=== PATIENT | female | born 1990 | race Caucasian/White ===

== ENCOUNTER 2016-10-10 19:42 | Emergency (ER) | payer SELFPAY ==
[2016-10-10 19:53] VITALS: O2SAT 98
[2016-10-10] MEDS ORDERED: Sodium Chloride 0.9% 1,000 ML IV STA (20:13)
[2016-10-10 20:18] VITALS: BMI 37.4
--- NOTE | 2016-10-10 20:19 | ED PDOC ---
Arrival/HPI - General Time Seen by Provider: 10/10/16 19:51 Historian: Patient - History of Present Illness Narrative History of Present Illness (Text): 10/10/16 20:08 A 26 year old obese female, whose past medical history includes NIDDM (on Metformin), presents to the emergency department for chest palpitations, which began 2 days ago and chest pain, which began 1 day ago. The patient admits to being addicted to soda and drank 2 cans today. She also reports two episodes of vomiting, diarrhea all day, and having chills. She also says that she has a history of anxiety and has been feeling very anxious but does not take any medications. She denies any fever, abdominal pain, vision changes, hematuria, dysuria, body aches, or any other complaints at this time. She recently had an ingrown toenail procedure of her left big toe. PMD: [place] Time/Duration: < week (x2 days) Symptom Onset: Gradual Symptom Course: Worsening Activities at Onset: Light Context: Home Past Medical History - Provider Review Nursing Documentation Reviewed: Yes - Infectious Disease Hx of Infectious Diseases: None - Endocrine/Metabolic Hx Diabetes Mellitus Type 2: Yes - Psychiatric Hx Substance Use: No - Anesthesia Hx Anesthesia: No Hx Anesthesia Reactions: No Hx Malignant Hyperthermia: No Family/Social History - Physician Review Nursing Documentation Reviewed: Yes Family/Social History: Unknown Family HX Smoking Status: Unknown If Ever Smoked Hx Alcohol Use: No Hx Substance Use: No Allergies/Home Meds Allergies/Adverse Reactions: Allergies No Known Allergies Allergy (Verified 03/08/16 17:25) Home Medications: Home Meds Medication Instructions Recorded Confirmed MetFORMIN [glucOPHAGE] 1,000 mg PO BID 07/15/15 03/08/16 Review of Systems - Physician Review All systems were reviewed & negative as marked: Yes - Review of Systems Constitutional: absent: Fevers Eyes: absent: Vision Changes Cardiovascular: Chest Pain, Palpitations Gastrointestinal: Diarrhea, Nausea, Vomiting. absent: Abdominal Pain Musculoskeletal: absent: Back Pain, Neck Pain Physical Exam Vital Signs Reviewed: Yes Vital Signs Temp Pulse Resp BP Pulse Ox 10/10/16 21:31 98.4 F 100 H 18 98 10/10/16 19:52 123 H 16 140/86 98 Temperature: Afebrile Pulse: Tachycardic Respiratory Rate: Normal Appearance: Positive for: Well-Appearing, Non-Toxic, Comfortable Pain Distress: None Mental Status: Positive for: Alert and Oriented X 3 - Systems Exam Head: Present: Atraumatic, Normocephalic Pupils: Present: PERRL Conjunctiva: Present: Normal Mouth: Present: Moist Mucous Membranes Pharnyx: Present: Normal. No: ERYTHEMA, EXUDATE Neck: Present: Normal Range of Motion Respiratory/Chest: Present: Clear to Auscultation, Good Air Exchange. No: Respiratory Distress, Accessory Muscle Use Cardiovascular: Present: Normal S1, S2, Tachycardic. No: Murmurs Abdomen: Present: Normal Bowel Sounds. No: Tenderness, Distention, Peritoneal Signs Back: Present: Normal Inspection Upper Extremity: Present: Normal Inspection. No: Cyanosis, Edema Lower Extremity: Present: Normal Inspection. No: Edema Neurological: Present: GCS=15, CN II-XII Intact, Speech Normal Skin: Present: Warm, Dry, Normal Color. No: Rashes Psychiatric: Present: Alert, Oriented x 3, Normal Insight, Normal Concentration Medical Decision Making ED Course and Treatment: 10/10/16 20:20 Impression: A 26 year old obese female with palpitations and chest pain. Differential Diagnosis included but are not limited to: anxiety vs dehydration vs PE vs infection Plan: -- Chest X-rays -- EKG -- Xanax, Pepcid, IV fluids -- Labs -- test -- Urinalysis -- Ultrasound lower extremity -- Reassess and disposition Prior Visits: Notes and results from previous visits were reviewed. The patient was last seen in the emergency department on 03/08/16 for back pain. The patient was discharged routine home. Progress Notes: 10/10/16 21:20 EKG: Ordered, reviewed, and independently interpreted the EKG. Rate : 123 BPM Rhythm : Sinus tachycardia Interpretation : Normal intervals, normal axis, no ST/T changes. Comparison : No changes compared from EKG on 07/15/15. 10/10/16 22:36 Patient with noted history. Initial EKG shows sinus tachycardia. Labs show normal CE and normal d-dimer with unremarkable CXR. Doubt cardiopulmonary etiology. Labs with leukocytosis of 14.3K, which may be related to possible gastroenteritis or possible UTI on u/a. Ingrown toenail site with no evidence of infection. Patient given IVF and famotidine and xanax, and heart rate improved significantly down to the 90s - she will be ok for dc on antibiotics to follow up her pmd. - Lab Interpretations Lab Results: 10/10/16 19:50 10/10/16 19:50 Lab Results 10/10/16 20:00: Urine Color Yellow, Urine Appearance Clear, Urine pH 6.0, Ur Specific [place] 1.015, Urine Protein Trace H, Urine Glucose (UA) Negative, Urine Ketones Trace H, Urine Blood Trace-lysed H, Urine Nitrate Negative, Urine Bilirubin Negative, Urine Urobilinogen 0.2, Ur Leukocyte Esterase Trace H, Urine RBC 0 - 2, Urine WBC 2 - 5, Ur Epithelial Cells 3 - 4, Urine HCG, Qual Negative 10/10/16 19:50: PT 10.5, INR 0.97, APTT 25.9, D-Dimer, Quantitative 0.30 10/10/16 19:50: Sodium 137, Potassium 3.6, Chloride 99, Carbon Dioxide 23, Anion Gap 19, BUN 11, Creatinine 0.6, Est GFR ( Amer) > 60, Est GFR (Non- Af Amer) > 60, Random Glucose 169 H, Calcium 9.3, Magnesium 1.7, Total Bilirubin 0.8, AST 31, ALT 51, Alkaline Phosphatase 91, Lactate Dehydrogenase 511, Total Creatine Kinase 76, Troponin I < 0.01, NT-Pro-B Natriuret Pep 33.2, Total Protein 8.1, Albumin 4.6, Globulin 3.5, Albumin/Globulin Ratio 1.3, Lipase 64 10/10/16 19:50: WBC 14.3 H D, RBC 4.79, Hgb 11.8 L, Hct 36.4, MCV 76.0 L, MCH 24.6 L, MCHC 32.4, RDW 13.7, Plt Count 462 H, MPV 9.3, Gran % 66.1, Lymph % ( Auto) 27.2, [place] % (Auto) 5.6, Eos % (Auto) 0.9 L, Baso % (Auto) 0.2, Gran # 9.47 H, Lymph # 3.9 H, [place] # 0.8 H, Eos # 0.1, Baso # 0.03 I have reviewed the lab results: Yes - RAD Interpretation Radiology Orders: 10/10/16 20:12 CHEST TWO VIEWS (PA/LAT) [RAD] Stat 10/10/16 20:15 DUPLEX LOWER EXTRM VEIN BILAT [US] Stat - Medication Orders Current Medication Orders: Discontinued Medications Alprazolam (Xanax) 0.25 mg PO STAT STA PRN Reason: Protocol Stop: 10/10/16 20:15 Last Admin: 10/10/16 20:27 Dose: 0.25 mg Famotidine (Pepcid) 20 mg IVP STAT STA Stop: 10/10/16 20:14 Last Admin: 10/10/16 20:27 Dose: 20 mg Sodium Chloride (Sodium Chloride 0.9%) 1,000 mls @ 999 mls/hr IV .Q1H1M STA Stop: 10/10/16 21:13 Last Admin: 10/10/16 20:27 Dose: 999 mls/hr Ceftriaxone Sodium (Rocephin 1 Gram Ivpb) 1 gm in 100 mls @ 200 mls/hr IV ONCE STA PRN Reason: Protocol Stop: 10/10/16 22:30 - PA / RN LPN CNA / Resident Statement MD/ has reviewed & agrees with the documentation as recorded. - Scribe Statement The provider has reviewed the documentation as recorded by the Anat Perry Provider Scribe Attestation: All medical record entries made by the Scribe were at my direction and personally dictated by me. I have reviewed the chart and agree that the record accurately reflects my personal performance of the history, physical exam, medical decision making, and the department course for this patient. I have also personally directed, reviewed, and agree with the discharge instructions and disposition. Disposition/Present on Arrival - Present on Arrival Any Indicators Present on Arrival: No History of DVT/PE: No History of Uncontrolled Diabetes: No Urinary Catheter: No History Surgical Site Infection Following: None - Disposition Have Diagnosis and Disposition been Completed?: Yes Diagnosis: Palpitations, Anxiety, Urinary tract infection Disposition: HOME/ ROUTINE Disposition Time: 22:35 Patient Plan: Discharge Condition: GOOD Discharge Instructions (ExitCare): Palpitations (ED), Anxiety (ED) Additional Instructions: Drink plenty of fluids. Take the antibiotics as prescribed. Follow up with your primary care doctor. Return to the emergency department if any new concerning symptoms. Prescriptions: Cephalexin [Keflex] 500 mg PO TID #30 cap Referrals: [facility], [Primary Care Provider] - Follow up with primary
[2016-10-10 20:59] LABS: BASO # 0.03 K/mm3 (0.0-2.0); BASO % 0.2 % (0.0-3.0); EOS # 0.1 (0.0-0.7); EOS % 0.9 % (1.5-5.0); GRAN # 9.47 (1.4-6.5); GRAN % 66.1 % (50.0-68.0); HEMOGLOBIN 11.8 g/dL (12.0-16.0); LYMPH # 3.9 (1.2-3.4); LYMPH % 27.2 % (22.0-35.0); MEAN CORPUSCULAR HEMOGLOBIN 24.6 pg (25.0-35.0); MEAN CORPUSCULAR HGB CONC 32.4 g/dl (31.0-37.0); MEAN PLATELET VOLUME 9.3 fl (7.0-11.0); MONO # 0.8 (0.1-0.6); MONO % 5.6 % (1.0-6.0); PLATELET COUNT 462 10^3/uL (120.0-450.0); RBC 4.79 10^6/uL (3.5-6.1); RED CELL DISTRIBUTION WIDTH 13.7 % (11.5-14.5); WHITE BLOOD COUNT 14.3 10^3/ul (4.5-11.0)
[2016-10-10 21:08] LABS: URINE BILIRUBIN NEGATIVE (NEGATIVE); URINE BLOOD TRACE-LYSED (NEGATIVE); URINE GLUCOSE (UA) NEGATIVE (NEGATIVE); URINE LEUKOCYTE ESTERASE TRACE Leu/uL (NEGATIVE); URINE NITRATE NEGATIVE (NEGATIVE); URINE PROTEIN TRACE mg/dL (<30 mg/dL); URINE UROBILINOGEN 0.2 E.U./dL (<1 E.U./dL)
[2016-10-10 21:11] LABS: URINE APPEARANCE CLEAR (CLEAR); URINE COLOR YELLOW (YELLOW)
[2016-10-10 21:12] LABS: HCG,QUALITATIVE URINE NEGATIVE (NEGATIVE)
[2016-10-10 21:13] LABS: ALB/GLOB RATIO 1.3 (1.1-1.8); ALBUMIN 4.6 g/dL (3.0-4.8); ALT/SGPT 51 U/L (7-56); AST/SGOT 31 U/L (15-39); BLOOD UREA NITROGEN 11 mg/dL (7-21); CALCIUM 9.3 mg/dL (8.4-10.5); GFR AFRICAN-AMERICAN > 60; GFR NON-AFRICAN AMERICAN > 60; LIPASE 64 U/L (23-300); MAGNESIUM 1.7 mg/dL (1.7-2.2)
[2016-10-10 21:16] LABS: URINE RBC 0 - 2 /hpf (0-2)
[2016-10-10 21:18] LABS: INR 0.97 (0.93-1.08); PARTIAL THROMBOPLASTIN TIME 25.9 Seconds (23.7-30.8); PROTHROMBIN TIME 10.5 Seconds (9.9-11.8)
[2016-10-10 21:19] LABS: D DIMER 0.3 mg/L FEU (0-0.50)
[2016-10-10 21:24] LABS: B-TYPE NATRIURETIC PEPTIDE 33.2 pg/mL (0-450)
[2016-10-10 21:31] VITALS: RESP 18; TEMP 98.4
[2016-10-10 21:49] LABS: TROPONIN I < 0.01 ng/mL
[2016-10-10] MEDS ORDERED: cefTRIAXone 1 gm 1 GM/100 ML BAG IV STA (22:01)
[2016-10-10 22:35] VITALS: BP 146/79; PULSE 95
--- NOTE | 2016-10-11 07:17 | RAD ---
HISTORY: chest pain COMPARISON: In 07/15/2015 TECHNIQUE: Chest PA and lateral FINDINGS: LUNGS: No active pulmonary disease. Shallow lung volumes. PLEURA: No significant pleural effusion identified. No pneumothorax apparent. CARDIOVASCULAR: Normal. OSSEOUS STRUCTURES: No significant abnormalities. VISUALIZED UPPER ABDOMEN: Normal. OTHER FINDINGS: None. IMPRESSION: No active disease.
--- NOTE | 2016-10-11 09:53 | CARD ---
APPROVED REPORT EKG Measurement Heart [id number] <Conclusion> Sinus tachycardia Otherwise normal ECG
--- NOTE | 2016-10-11 09:56 | CARD ---
APPROVED REPORT EKG Measurement Heart [id number] <Conclusion> Sinus tachycardia Otherwise normal ECG
--- NOTE | 2016-10-11 19:47 | US ---
HISTORY: Leg pain and swelling. Evaluate for DVT PHYSICIAN(S): Joshua Toro MD. TECHNIQUE: Duplex sonography and color-flow Doppler with graded compression were used to evaluate the deep venous systems of both lower extremities. The exam is somewhat limited by body habitus and edema. FINDINGS: The visualized deep venous systems of both lower extremities are sonographically normal and compressible. Normal wave forms and augmentation are seen. There is no sonographic evidence for deep venous thrombosis in the visualized segments of both lower extremities. IMPRESSION: No sonographic evidence for deep venous thrombosis in the visualized segments of both lower extremities.
== END 2016-10-10 23:00 | disposition home or self-care (01) ==
LOC: ED 19:42
DX: R00.2 Palpitations (principal); F41.9 Anxiety disorder, unspecified; N39.0 Urinary tract infection, site not specified; E11.9 Type 2 diabetes mellitus without complications; Z79.84 Long term (current) use of oral hypoglycemic drugs
CPT/HCPCS: 71020; 80053; 81001; 82550; 83615; 83690; 83735; 83880; 84484; 84703; 85025; 85378; 85610; 85730; 87086; 93005; 93970; 96374; 99283; J0696; J7040